=== PATIENT | female | born 1975 | race Caucasian/White ===

== ENCOUNTER → 2017-11-24 | Outpatient (CLI) | payer BC | LOC: ULTRA 08:33 | DX: R10.32 Left lower quadrant pain (principal) ==

== ENCOUNTER → 2019-12-28 | Outpatient (CLI) | payer BC | LOC: LAB 11:12 | PROVIDERS: ATTEND Family Medicine | DX: R05 Cough (principal); R06.02 Shortness of breath; J02.9 Acute pharyngitis, unspecified; Z20.828 Contact with and (suspected) exposure to other viral communicable diseases ==

== ENCOUNTER → 2020-03-10 | Outpatient (CLI) | payer BC | LOC: LAB 12:37 | PROVIDERS: ATTEND Nurse Practitioner | DX: U07.1 COVID-19 (principal) ==

== ENCOUNTER 2020-04-21 11:07 | Emergency (ER) | payer BC ==
[~2020-04-21] VITALS: Ht 165.1 cm; Wt 77.1 kg
[2020-04-21 13:17] VITALS: BP 122/68
== END 2020-04-21 13:18 | disposition home or self-care (01) ==
LOC: ER 11:07
DX: M79.661 Pain in right lower leg (principal); Z88.0 Allergy status to penicillin

== ENCOUNTER → 2020-07-16 | Outpatient (CLI) | payer BC | LOC: ULTRA 10:00 | PROVIDERS: ATTEND Family Medicine | DX: I70.0 Atherosclerosis of aorta (principal) ==